=== PATIENT | female | born 1950 | race Caucasian/White ===

== ENCOUNTER 2016-07-02 12:00 | Emergency (ER) | payer OTHER, BC ==
[~2016-07-02] VITALS: Ht 162.6 cm; Wt 59.0 kg
[~2016-07-02 12:00] MED LIST: ASPIRIN325 MG PO; COZAAR100 MG PO; FISH OIL 1,0001 EAC7 PO; LIPITOR40 MG PO; LISINOPRIL20 MG PO; METOPROLOL SUCC25 MG PO; NITROSTAT0.4 MG SL; ONE DAILY FOR1 EAC3 PO; TOPROL XL50 MG PO; XANAX0.25 MG PO
[2016-07-02 13:02] LABS: INFLUENZA A VIRAL ANTIGEN POSITIVE; INFLUENZA B VIRAL ANTIGEN NEGATIVE
[2016-07-02 13:22] LABS: CHLORIDE 108 mEq/L (99-109); SODIUM 142 mEq/L (136-147)
[2016-07-02 13:24] LABS: GLUCOSE 96 mg/dL (70-99)
[2016-07-02 13:25] LABS: ANION GAP 11 MEQ/L (2-14)
[2016-07-02 13:28] LABS: GFR ESTIMATE (CALCULATED) > 59 mL/min/
[2016-07-02 13:29] LABS: UREA NITROGEN (BUN) 10 mg/dL (9-23)
[2016-07-02] MEDS ORDERED: TAMIFLU75 MG PO (13:48)
[2016-07-02 13:55] VITALS: BP 147/98
== END 2016-07-02 13:56 | disposition home or self-care (01) ==
LOC: EME 12:00
PROVIDERS: Physician Assistant
DX: J10.1 Influenza due to other identified influenza virus with other respiratory manifestations (principal); E78.5 Hyperlipidemia, unspecified; I25.2 Old myocardial infarction; Z98.61 Coronary angioplasty status; Z72.0 Tobacco use; Z79.82 Long term (current) use of aspirin
CPT/HCPCS: 80048; 87502; 87651 90; 99281; 99283

== ENCOUNTER 2016-09-16 02:01 | Observation (INO) | payer OTHER, BC ==
[~2016-09-16] VITALS: Ht 157.5 cm; Wt 60.8 kg
[~2016-09-16 02:01] MED LIST changes: +TAMIFLU75 MG PO
[2016-09-16 02:38] LABS: MEAN PLAT.VOLUME 10.5 uM^3 (9.5-12.4); PLATELET COUNT 166 K/uL (156-360)
[2016-09-16 02:49] LABS: CHLORIDE 110 mEq/L (99-109); D-DIMER ELISA < 0.15 mg/L FEU (< 0.57); INTER. NORMALIZED RATIO 1.1; POTASSIUM 3.7 mEq/L (3.7-5.4); PROTHROMBIN TIME 10.9 (9.2-11.2); SODIUM 142 mEq/L (136-147)
[2016-09-16 02:51] LABS: GLUCOSE 110 mg/dL (70-99)
[2016-09-16 02:53] LABS: ANION GAP 9 MEQ/L (2-14); TOTAL BILIRUBIN 0.8 mg/dL (0.0-1.0)
[2016-09-16 02:55] LABS: ALKALINE PHOSPHATASE 84 IU/L (3-129); GFR ESTIMATE (CALCULATED) > 59 mL/min/; HEMATOCRIT 41.2 % (36.0-46.0); MCH 31.6 PG (29.0-34.0); MCHC 33.3 G/DL (30.0-36.0); MCV 95.2 FL (83-99); RBC DIS.WIDTH-CV 13.4 % (11.8-14.6); RBC DIS.WIDTH-SD 47.3 % (39-53); RED BLOOD COUNT 4.33 M/uL (3.80-5.20); WHITE BLOOD COUNT 45.7 K/uL (4.1-10.2)
[2016-09-16 02:56] LABS: UREA NITROGEN (BUN) 13 mg/dL (9-23)
[2016-09-16 02:59] LABS: LIPASE 38 U/L (1.0-51.0); TROP-I INTERPRETATION NEGATIVE; TROPONIN-I < 0.01 ng/mL (0.0-0.30)
[2016-09-16 06:20] VITALS: BP 146/74
[2016-09-16 06:49] LABS: ABS NEUTROPHIL COUNT 16.5; ANISOCYTOSIS 1+; EOSINOPHIL ABS CT 0.5; INSTRUMENT ABS NEUTROPHIL CT 6.6 K/uL; MACROCYTES 1+; OVALOCYTES 1+; PLAT.SUFFICIENCY ADEQUATE
[2016-09-16 07:10] VITALS: BP 116/68
[2016-09-16 09:14] LABS: HDL CHOLESTEROL 48 MG/DL (Desirable>=50); LDL CHOLESTEROL 46 mg/dL (Desirable<100); NON-HDL CHOLESTEROL 54 mg/dL (Desirable<160); TOTAL CHOLESTEROL 102 mg/dL (Desirable<200); TRIGLYCERIDES 42 MG/DL (Normal: <150)
[2016-09-16 09:15] LABS: TROP-I INTERPRETATION NEGATIVE; TROPONIN-I < 0.01 ng/mL (0.0-0.30)
[2016-09-16 12:48] VITALS: BP 115/64
[2016-09-16] MEDS ORDERED: LIPITOR40 MG PO (14:03)
[2016-09-16] MEDS ORDERED: TOPROL XL50 MG PO (14:13)
[2016-09-16] MEDS ORDERED: LOSARTAN POTAS100 MG PO (14:17)
[2016-09-16] MEDS ORDERED: CO Q-10100 MG PO (14:18)
[2016-09-16] MEDS ORDERED: PROTONIX40 MG PO (14:21)
[2016-09-16] MEDS ORDERED: ZOFRAN4 MG PO (14:21)
[2016-09-16 15:21] LABS: TROP-I INTERPRETATION NEGATIVE; TROPONIN-I < 0.01 ng/mL (0.0-0.30)
[2016-09-16 15:42] VITALS: BP 112/65
== END 2016-09-16 17:09 | disposition home or self-care (01) ==
LOC: EME → EDBD 02:01 → EDOF 04:49 → 4EAST 05:59
PROVIDERS: Emergency Medicine; Physician Assistant Medical
DX: R07.89 Other chest pain (principal); C91.10 Chronic lymphocytic leukemia of B-cell type not having achieved remission; I10 Essential (primary) hypertension; F41.9 Anxiety disorder, unspecified; E78.5 Hyperlipidemia, unspecified; I25.10 Atherosclerotic heart disease of native coronary artery without angina pectoris; I25.2 Old myocardial infarction; Z95.5 Presence of coronary angioplasty implant and graft; F17.210 Nicotine dependence, cigarettes, uncomplicated
CPT/HCPCS: 70450; 71010; 71275; 74177; 80053; 80061; 81003; 83605; 83690; 84484; 85025; 85027; 85379; 85610; 85730; 87040; 93005; 99281; 99285; G0378; J1200; J1650; J2405; J3475; J7030; S0028